=== PATIENT | male | born 1960 | race Caucasian/White ===

== ENCOUNTER 2019-05-29 09:48 | Day surgery (SDC) | payer BC ==
[~2019-05-29 09:48] MED LIST: Lactated Ringers 1,000 ML IV SCH
[2019-05-29] MEDS ORDERED: Midazolam 1 MG/ML 2 ML SDV ONE (11:33)
[2019-05-29] MEDS ORDERED: Propofol 200 MG/20 ML SDV ONE (11:34)
[2019-05-29] MEDS ORDERED: fentaNYL 100 MCG/2 ML SDV ONE (11:34)
--- NOTE | 2019-05-30 07:50 | OR ---
PREOPERATIVE DIAGNOSIS: Swallowing issues. POSTOPERATIVE DIAGNOSIS: Swallowing issues. PROCEDURE PERFORMED: EGD with antral biopsy. INDICATION: The patient is a 58-year-old male with history of upper esophageal issues with swallowing where he feels like he is always clearing his throat, presents for EGD at this time. PROCEDURE IN DETAIL: This was done in the endoscopy suite. Sedation was given per Anesthesia. The endoscope was inserted across the pharynx into the stomach, across the pylorus, into the 1st and 2nd portion of the duodenum. The 1st and 2nd portion of the duodenum were normal. The scope was slowly withdrawn and retroflexed. Normal anatomy was found. I then did 2 antral biopsies for H. pylori. The scope was then withdrawn the remainder of the way. The remainder of the esophagus was normal. FINAL DIAGNOSES: 1. Normal EGD. 2. Biopsies pending for Helicobacter pylori. BKD: 05/29/2019 11:56:52 MODL: 05/29/2019 15:13:57 /[id number]
== END 2019-05-29 12:38 | disposition home or self-care (01) ==
LOC: VM.SDS 09:48
PROVIDERS: ATTEND Surgery
DX: R13.10 Dysphagia, unspecified (principal); G89.29 Other chronic pain; M25.512 Pain in left shoulder; E78.5 Hyperlipidemia, unspecified; F17.210 Nicotine dependence, cigarettes, uncomplicated; M75.122 Complete rotator cuff tear or rupture of left shoulder, not specified as traumatic; M19.012 Primary osteoarthritis, left shoulder; M25.412 Effusion, left shoulder
CPT/HCPCS: 43239; 73221; J2250; J2704; J3010; J7120

== ENCOUNTER 2023-09-08 13:03 | Emergency (ER) | payer BC ==
[2023-09-08 13:46] LABS: BASOPHILS PERCENT AUTO 0.5 % (0.2-1.2); EOSINOPHILS ABSOLUTE AUTO 0.2 x10^3/uL (0.0-0.5); EOSINOPHILS PERCENT AUTO 2.5 % (0.0-4.0); HEMOGLOBIN 13.9 g/dL (14.0-18.0); IMMATURE GRAN ABSOLUTE AUTO 0.01 x10^3/uL (0.00-0.07); LYMPHOCYTES ABSOLUTE AUTO 1.5 x10^3/uL (1.0-4.8); LYMPHOCYTES PERCENT AUTO 17.8 % (25.0-50.0); MEAN CORPUSCULAR HGB CONC 33.9 g/dL (32.0-36.0); MEAN CORPUSCULAR VOLUME 91.3 fL (78.0-93.0); MONOCYTES ABSOLUTE AUTO 0.6 x10^3/uL (0.0-0.8); MONOCYTES PERCENT AUTO 6.9 % (2.0-11.0); NEUTROPHILS ABSOLUTE AUTO 6.1 x10^3/uL (1.8-7.7); NEUTROPHILS PERCENT AUTO 72.2 % (50.0-80.0); PLATELET COUNT,PLT 253 x10^3/uL (130-400); RED BLOOD CELL COUNT 4.49 x10^6/uL (4.5-6.0); WHITE BLOOD CELL COUNT,WBC 8.4 x10^3/uL (4.0-10.0)
[2023-09-08 13:56] LABS: HCO3 VENOUS,POC 23 mmol/L (22-29); O2 SATURATION VENOUS,POC 78 %; PCO2 VENOUS,POC 35 mmHg (41-51); PH VENOUS,POC 7.41 pH (7.32-7.43); PO2 VENOUS,POC 42 mmHg
[2023-09-08 14:07] LABS: A/G RATIO 1.16; ALBUMIN 3.7 g/dL (3.4-5.0); ANION GAP 12.5 mmol/L (5-15); BILIRUBIN TOTAL 0.3 mg/dL (0.2-1.0); CALCIUM 8.8 mg/dL (8.5-10.1); EST CRCL DRUG DOSING (CG) 85.45 mL/min; POTASSIUM,K 4.5 mmol/L (3.5-5.1); PROTEIN TOTAL,TP 6.9 g/dL (6.4-8.2)
== END 2023-09-08 15:52 | disposition home or self-care (01) ==
LOC: VM.ED 13:03
DX: T58.91XA Toxic effect of carbon monoxide from unspecified source, accidental (unintentional), initial encounter (principal)
CPT/HCPCS: 36415; 70450; 71046; 80053; 82375; 82550; 82803; 83605; 84484; 85025; 93005; 93010; 99284

== ENCOUNTER 2024-10-30 11:01 | Day surgery (SDC) | payer BC ==
[2024-10-30] MEDS ORDERED: Propofol 200 MG/20 ML SDV ONE ×2 (11:09→11:57)
[2024-10-30] MEDS ORDERED: fentaNYL 100 MCG/2 ML SDV ONE (11:09)
[2024-10-30] MEDS: Lactated Ringers 1,000 ML IV SCH (11:31)
== END 2024-10-30 13:21 | disposition home or self-care (01) ==
LOC: VM.SDS 11:01
PROVIDERS: ATTEND Surgery
DX: Z12.11 Encounter for screening for malignant neoplasm of colon (principal); E78.5 Hyperlipidemia, unspecified
CPT/HCPCS: 45378; J2704; J3010; J7120; 00812

== ENCOUNTER 2025-10-05 16:23 | Emergency (ER) | payer BC, MEDICARE ==
[2025-10-05] MEDS: Lidocaine 1% with EPINEPHrine 1:100,000 20 ML MDV INFILT PRN (16:30)
[2025-10-05] MEDS: Diphtheria,Pertussis(Acell),Tetanus Vaccine 0.5 ML Syringe IM ONE (17:05)
== END 2025-10-05 17:14 | disposition home or self-care (01) ==
LOC: VM.ED 16:23
DX: S01.81XA Laceration without foreign body of other part of head, initial encounter (principal); E78.00 Pure hypercholesterolemia, unspecified; Z79.899 Other long term (current) drug therapy; Z23 Encounter for immunization; W22.8XXA Striking against or struck by other objects, initial encounter; Y93.89 Activity, other specified
CPT/HCPCS: 12013; 90471; 90715; 99282; J2004